=== PATIENT | male | born 1960 | race African-American/Black ===

== ENCOUNTER 2016-10-04 14:54 | Emergency (ER) | payer OTHER ==
[~2016-10-04] VITALS: Ht 190.5 cm; Wt 89.0 kg
[2016-10-04 15:04] VITALS: BP 117/77; PULSE 65; TEMP 37; O2SAT 95; Ht 190.5 cm; Wt 89.0 kg
[2016-10-04] MEDS ORDERED: ERYTHROMYCIN OP OINT 5 MG/GM 3.5 GM TUBE OP STA (15:37)
[2016-10-04] MEDS ORDERED: CHOL1000 PO (15:38)
--- NOTE | 2016-10-04 15:41 | EMERGENCY ROOM VISIT NOTE ---
ED Visit Note First contact with patient: 15:14 CHIEF COMPLAINT: "Stye to right upper eyelid. Noticed this morning. Draining. "It kenny like hell". HISTORY OF PRESENT ILLNESS: This 55-year-old male patient presents to the emergency Department via private vehicle with complaints of stye to the right upper eyelid. He notes that this morning, and it has been draining. He notes that it is irritating and kenny. He rates his pain as a 5/10. He denies any vision change or blurred vision. REVIEW OF SYSTEMS:A complete 6-point Review of Systems was discussed with the patient, with pertinent positives and negatives listed in the History of Present Illness. All remaining Review of Systems questions can be considered negative unless otherwise specified. PMH: The patient is healthy; there is no significant medical or surgical history. SOCIAL HISTORY: Patient lives at home. PHYSICAL EXAM: Vital Signs: Reviewed Nurse's notes. GENERAL: This is a healthy- appearing person who is uncomfortable from the eye problem. The pupils are round, equal, and react to light. EOMs are full. There is discharge of clear tears from the injured eye which is slightly injected. There is evidence of a stye on the right upper eyelid. Remainder of exam is unremarkable. No foreign body was seen embedded in the cornea. The cornea was clear and no hyphema was seen. EMERGENCY DEPARTMENT COURSE: Patient was seen and evaluated as above. After obtaining a thorough history and physical examination it was apparent the patient was experiencing a stye. He was encouraged to use warm compresses. Due to the discomfort he'll be placed upon erythromycin ointment. He is to follow up with his family doctor regarding today's visit. I do not suspect any other emergent etiology. IMPRESSION: Eye Pain In the evaluation and treatment of this patient, the following differential diagnoses were considered: Corneal Abrasion, Conjunctivitis, Eye Contusion, Sty , Globe Injury, Orbital Floor Injury (Blowout Fracture), Corneal Ulcer, Keratitis, Herpes Zoster Opthalmic, Blepharitis, Orbital Cellulitis, Iritis, Scleritis/Episcleritis, Uveitis, Temporal Arteritis, Subconjunctival Hemorrhage. Current/Historical Medications Scheduled Cholecalciferol (Vitamin D3), 1 TAB PO DAILY Allergies Coded Allergies: No Known Allergies (Unverified , 10/04/16) Vital Signs Date Time Temp Pulse Resp B/P Pulse Ox O2 Delivery O2 Flow Rate FiO2 3/10/17 15:04 37.0 65 18 117/77 95 Room Air Medications Administered Medications (Trade) Dose Ordered Sig/Luiz Route Start Time Stop Time Status Last Admin Dose Admin Erythromycin (Erythromycin Oph Oint) 1 appln NOW STAT OP 10/04/16 15:37 10/04/16 15:38 DC 10/04/16 15:37 1 APPLN Departure Information Impression Primary Impression: Sty, external Dispostion Home / Self-Care Condition GOOD Referrals No Doctor, Assigned (PCP) Patient Instructions [facility] Additional Instructions You have been treated in the Emergency Department today for your sty. Please use warm compresses over the eye as we discussed. Please be careful so as to not burn the eye You have been prescribed Erythromycin Ophthalmic Ointment. This is an antibiotic ointment which will help prevent an infection from developing in your affected eye You should apply a 1 cm ribbon of the ointment to the lower part of the affected eye up to 3-4 times per day for the next 5-7 days. For pain control, you can use the following [id number] medicines (if >12 yo): - Regular strength (325mg/tab) Tylenol (acetaminophen) 2 tabs every 4-6 hours as needed. Do not exceed 12 tablets in a 24 hour period. Avoid taking more than 4 grams (4000 mg) of Tylenol per day. This includes any other sources of acetaminophen you may take on a regular basis. - Regular strength (200 mg/tab) Advil (ibuprofen) 1-2 tabs every 4-6 hours as needed. Do not exceed a dose of 3200 mg per day. You should relax in a quiet, dark place for the rest of the day. You should wear sunglasses while outside for the next few days until your eyes are not as sensitive to the light. Please follow up with your family doctor regarding today's visit. Return to the Emergency Department if your current symptoms worsen despite treatment course outlined above, or if you develop any of the following symptoms : intractable pain, visual disturbances, loss of vision, increased redness, swelling, drainage, or if you develop a fever. What is a stye? A stye is a red and painful lump on the eyelid. It happens when a small gland on the edge of the eyelid gets infected or inflamed. Styes can occur on the upper or lower eyelids. Most styes get better on their own after a few days to a week. Another word for stye is hordeolum. People sometimes get a stye confused with a different eye problem called a chalazion. A chalazion also causes a lump on the eyelid. But a stye is caused by an infection and is painful. A chalazion is not tender or painful, but it often lasts longer than a stye does. What are the symptoms of a stye? People who have a stye have a red and painful lump on the edge of their eyelid (picture 1). A stye usually develops over a few days. It can look like a pimple. Styes can cause other symptoms, too , such as tearing and eyelid pain and swelling. Is there a test for a stye? No. But your doctor or nurse should be able to tell if you have a stye by doing an exam and talking with you. Is there anything I can do on my own to feel better? Yes. To ease your symptoms and help your stye get better, you can put warm, wet pressure on the stye. Wet a clean wash cloth with warm water and put it over your stye. When the wash cloth cools, reheat it with warm water and put it back over the stye. Repeat these steps for 5 to 15 minutes, and try to do this 3 to 4 times a day. You should NOT squeeze or pop your stye. Also, you should not wear eye makeup or contact lenses until your stye is all better. Should I see a doctor or nurse? See your doctor or nurse if: ?Your stye doesnt go away after you treat it on your own for 1 week ?Your stye gets very big, bleeds, or affects your vision ?Your whole eye is red, or your whole eyelid is red and swollen ?The redness or swelling spreads to your cheek or other parts of your face What treatments might my doctor use? If your stye doesnt get better or if it leads to other problems, your doctor might: ?Prescribe a cream or ointment that goes in the eye and on the eyelid ?Prescribe antibiotic medicines ?Drain the stye Can styes be prevented? Yes. To lower your chances of getting a stye, you can: ?Wash your hands before you touch your eyes ?Wash your hands before you put in contact lenses and keep your contact lenses clean (if you wear contact lenses) ?Take off your eye makeup each night ?Not share eye makeup with other people Problem Qualifiers Primary Impression: Sty, external Laterality: right Eyelid: upper Qualified Codes: H00.011 - Hordeolum externum right upper eyelid
== END 2016-10-04 15:56 | disposition home or self-care (01) ==
LOC: C.EDB 14:56 → C.EDD 15:56
DX: H00.011 Hordeolum externum right upper eyelid (principal)

== ENCOUNTER 2017-04-18 11:57 | Emergency (ER) | payer OTHER ==
[~2017-04-18] VITALS: Ht 190.5 cm; Wt 91.0 kg
[~2017-04-18 11:57] MED LIST: CHOL1000 PO
[2017-04-18 12:03] VITALS: BP 131/90; PULSE 77; TEMP 37.2; O2SAT 97; Ht 190.5 cm; Wt 91.0 kg
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
--- NOTE | 2017-04-18 12:50 | DIAGNOSTIC IMAGING REPORT ---
R HAND MIN 3 VIEWS ROUTINE CLINICAL HISTORY: Right hand pain. COMPARISON: None. DISCUSSION: No fractures or dislocations are visualized. There are no erosive or destructive changes. IMPRESSION: No fractures identified. Electronically signed by: Renard Richardson M.D. 04/18/2017 12:48 PM Dictated Date/Time: 04/18/2017 12:48 PM
--- NOTE | 2017-04-18 12:52 | DIAGNOSTIC IMAGING REPORT ---
R WRIST W/NAVICULAR MIN 3 VIEWS CLINICAL HISTORY: Right wrist pain COMPARISON: None. DISCUSSION: No acute fractures or dislocations are visualized. There are no erosive or destructive changes. On the lateral view there is a 7 x 2 mm bony density projected adjacent to the volar aspect of the distal carpal row. Although age-indeterminate, this is likely chronic. IMPRESSION: 7 x 2 mm bony density projected adjacent to the volar aspect of the distal carpal row on the lateral view. Although age-indeterminate, this is likely old Electronically signed by: Renard Richardson M.D. 04/18/2017 12:50 PM Dictated Date/Time: 04/18/2017 12:48 PM
== END 2017-04-18 13:26 | disposition home or self-care (01) ==
LOC: C.EDB 12:00 → C.EDD 13:26
DX: M79.641 Pain in right hand (principal); M25.531 Pain in right wrist; F17.200 Nicotine dependence, unspecified, uncomplicated